=== PATIENT | female | born 1985 | race Two or more races ===

== ENCOUNTER 2019-02-03 07:25 | Emergency (ER) | payer OTHER ==
[~2019-02-03] VITALS: Ht 160 cm; Wt 71.2 kg
[~2019-02-03 07:25] MED LIST: KETO10TA2
== END 2019-02-03 16:07 | disposition home or self-care (01) ==
LOC: ER 07:25
DX: M71.22 Synovial cyst of popliteal space [Baker], left knee (principal); M25.562 Pain in left knee

== ENCOUNTER 2019-02-07 15:56 | Outpatient (CLI) | payer OTHER | END 2019-02-07 16:02 | disposition home or self-care (01) | LOC: RAD 15:56 | DX: M25.561 Pain in right knee (principal) ==

== ENCOUNTER → 2019-02-08 | Outpatient (CLI) | payer OTHER | END | disposition home or self-care (01) | LOC: MRI 11:15 | DX: M25.562 Pain in left knee (principal) | CPT/HCPCS: 73721 ==

== ENCOUNTER 2019-02-15 11:59 | Outpatient (CLI) | payer OTHER | END 2019-02-15 13:41 | disposition home or self-care (01) | LOC: RAD 11:59 | DX: R07.89 Other chest pain (principal) ==

== ENCOUNTER 2019-02-15 12:30 | Outpatient (CLI) | payer OTHER | END 2019-02-15 13:36 | disposition home or self-care (01) | LOC: EKG 12:30 → LAB 12:30 → EKG 13:36 | DX: I10 Essential (primary) hypertension (principal) ==

== ENCOUNTER 2019-06-23 12:55 | Emergency (ER) | payer OTHER ==
[~2019-06-23] VITALS: Ht 162.6 cm; Wt 68.0 kg
== END 2019-06-23 15:46 | disposition home or self-care (01) ==
LOC: ER 12:55
DX: S13.4XXA Sprain of ligaments of cervical spine, initial encounter (principal); V49.88XA Car occupant (driver) (passenger) injured in other specified transport accidents, initial encounter; Y93.89 Activity, other specified; Y92.413 State road as the place of occurrence of the external cause; Y99.8 Other external cause status; M62.838 Other muscle spasm